=== PATIENT | female | born 2000 | race African-American/Black ===

== ENCOUNTER 2021-05-23 14:31 | Emergency (ER) | payer OTHER ==
[~2021-05-23] VITALS: Ht 170.2 cm; Wt 85.3 kg
[2021-05-23] MEDS ORDERED: PROVENTIL HFA6.7 GM INH (15:08)
== END 2021-05-23 15:25 | disposition home or self-care (01) ==
LOC: ER 15:07
DX: O98.512 Other viral diseases complicating pregnancy, second trimester (principal); U07.1 COVID-19; Z3A.17 17 weeks gestation of pregnancy
CPT/HCPCS: 99283; U0002

== ENCOUNTER 2022-03-16 17:37 | Emergency (ER) | payer OTHER ==
[~2022-03-16] VITALS: Ht 170.2 cm; Wt 85.3 kg
[~2022-03-16 17:37] MED LIST: PROVENTIL HFA6.7 GM INH
[2022-03-16] MEDS ORDERED: ONDANSETRON HCL INJ 2MG/ML 2ML 2 MG/ML VIAL IV STA (17:45)
[2022-03-16] MEDS ORDERED: SODIUM CHLORIDE 0.9% 1000ML 1,000 ML IV ONE (17:45)
[2022-03-16] MEDS ORDERED: KETOROLAC TROMETHAMINE 30 MG/ML VIAL IV STA (17:45)
[2022-03-16 17:55] LABS: BASOPHILS % 0.4 % (0.0-1.0); EOSINOPHILS % 0.3 % (0.0-6.0); HEMATOCRIT 42.2 % (34.2-44.1); HEMOGLOBIN 13.5 g/dL (12.0-16.0); LYMPHOCYTES # (AUTO) 1.2 (1.0-3.2); LYMPHOCYTES % 18.4 % (18.0-39.1); MEAN CORPUSCULAR HEMOGLOBIN 27.7 pg (28-32); MEAN CORPUSCULAR VOLUME 86.7 fL (81-99); MONOCYTES # (AUTO) 0.5 (0.2-0.8); MONOCYTES % 7.5 % (4.4-11.3); NEUTROPHILS # (AUTO) 4.9 (2.1-6.9); NEUTROPHILS % 73.1 % (38.7-80.0); PLATELET COUNT 213 x10e3/uL (140-360); RED BLOOD COUNT 4.87 x10e6/uL (3.6-5.1); RED CELL DISTRIBUTION WIDTH 13.2 % (11.7-14.4)
[2022-03-16 18:08] LABS: CLARITY,URINE SL CLOUDY (CLEAR); COLOR,URINE YELLOW (YELLOW); KETONES,URINE 1+ (NEGATIVE); LEUKOCYTE ESTERASE ,URINE SMALL (NEGATIVE); NITRITE,URINE NEGATIVE (NEGATIVE); PROTEIN,URINE DIPSTICK NEGATIVE (NEGATIVE); URINE UROBILINOGEN 0.2 mg/dL (0.2 - 1)
[2022-03-16 18:11] LABS: ALANINE AMINOTRANSFERASE 57 IU/L (0-55); ALBUMIN 4.6 g/dL (3.5-5.0); ALBUMIN/GLOBULIN RATIO 1.4 (0.8-2.0); ALKALINE PHOSPHATASE 53 IU/L (40-150); ANION GAP 16.9 mmol/L (8-16); BLOOD UREA NITROGEN 13 mg/dL (7-26); BUN/CREATININE RATIO 17 (6-25); CALCIUM 9.5 mg/dL (8.4-10.2); CARBON DIOXIDE 23 mmol/L (22-29); CHLORIDE 102 mmol/L (98-107); CREATININE, SERUM 0.77 mg/dL (0.57-1.11); GLUCOSE 108 mg/dL (74-118); LIPASE 47 U/L (8-78); POTASSIUM 3.9 mmol/L (3.5-5.1); SODIUM 138 mmol/L (136-145)
[2022-03-16 18:19] LABS: AMORPHOUS SEDIMENT,URINE MODERATE (FEW); BACTERIA,URINE MODERATE /HPF; EPITHELIAL CELLS,URINE MODERATE /LPF
[2022-03-16] MEDS ORDERED: ONDANSETRON ODT4 MG PO (19:14)
== END 2022-03-16 19:25 | disposition home or self-care (01) ==
LOC: ER 17:40
DX: J10.1 Influenza due to other identified influenza virus with other respiratory manifestations (principal); R11.2 Nausea with vomiting, unspecified
CPT/HCPCS: 36415; 80053; 81001; 83690; 84702; 85025; 99283; J1885; J2405; J7030

== ENCOUNTER 2023-12-17 12:25 | Emergency (ER) | payer OTHER, BC ==
[~2023-12-17] VITALS: Ht 170.2 cm; Wt 85.3 kg
[~2023-12-17 12:25] MED LIST changes: +ONDANSETRON ODT4 MG PO
[2023-12-17 12:57] VITALS: PULSE 86; RESP 17; TEMP 98.3; O2SAT 100
== END 2023-12-17 13:25 | disposition home or self-care (01) ==
LOC: ER 13:04
DX: R51.9 Headache, unspecified (principal); H91.92 Unspecified hearing loss, left ear; V43.52XA Car driver injured in collision with other type car in traffic accident, initial encounter; Y92.488 Other paved roadways as the place of occurrence of the external cause
CPT/HCPCS: 99282